=== PATIENT | male | born 2000 | race Caucasian/White ===

== ENCOUNTER 2020-02-06 08:54 | Emergency (ER) | payer OTHER ==
[~2020-02-06] VITALS: Ht 180.3 cm; Wt 84.8 kg
[2020-02-06 09:01] VITALS: BP 118/66
[2020-02-06 09:20] VITALS: BP 118/66
== END 2020-02-06 09:20 | disposition home or self-care (01) ==
LOC: MED 08:54
DX: J30.9 Allergic rhinitis, unspecified (principal)
CPT/HCPCS: 99283